=== PATIENT | female | born 1950 | race Caucasian/White ===

== ENCOUNTER → 2020-03-05 | Day surgery (SDC) | payer MEDICARE ==
[2020-03-01 09:57] LABS: BASOPHILS % 0.3 % (0.0-1.0); EOSINOPHILS # (AUTO) 0.2 (0.0-0.4); EOSINOPHILS % 2.2 % (0.0-6.0); HEMATOCRIT 39.1 % (34.2-44.1); HEMOGLOBIN 12.8 g/dL (12.0-16.0); LYMPHOCYTES # (AUTO) 2.1 (1.0-3.2); LYMPHOCYTES % 23.4 % (18.0-39.1); MEAN CORPUSCULAR HEMOGLOBIN 30.3 pg (28-32); MEAN CORPUSCULAR HGB CONC 32.7 g/dL (31-35); MEAN CORPUSCULAR VOLUME 92.7 fL (81-99); MONOCYTES # (AUTO) 0.7 (0.2-0.8); MONOCYTES % 7.6 % (4.4-11.3); NEUTROPHILS % 66.2 % (38.7-80.0); PLATELET COUNT 210 x10e3/uL (140-360); RED BLOOD COUNT 4.22 x10e6/uL (3.6-5.1); RED CELL DISTRIBUTION WIDTH 11.9 % (11.7-14.4)
[2020-03-01 10:34] LABS: ALANINE AMINOTRANSFERASE 18 IU/L (0-55); ALBUMIN/GLOBULIN RATIO 1.1 (0.8-2.0); ALKALINE PHOSPHATASE 56 IU/L (40-150); BLOOD UREA NITROGEN 18 mg/dL (7-26); BUN/CREATININE RATIO 22 (6-25); CALCIUM 9.3 mg/dL (8.4-10.2); CARBON DIOXIDE 25 mmol/L (22-29); CHLORIDE 99 mmol/L (98-107); CREATININE, SERUM 0.82 mg/dL (0.57-1.11); EST GLOMERULAR FILTRATION RATE > 60 ML/MIN (60-); GLUCOSE 90 mg/dL (74-118); SODIUM 134 mmol/L (136-145)
[~2020-03-05] VITALS: Ht 160 cm; Wt 70.3 kg
[~2020-03-05] MED LIST: ALENDRONATE SOD70 MG PO; ALPRAZOLAM 0.5 MG TAB ONE; CALCIUM ACETAT667 M1 PO; CYCLOBENZAPRINE10 MG PO; DIPHENHYDRAMINE HCL 25 MG CAP ONE; FENTANYL CITRATE/PF 100MCG/2 ML INJ ONE; HEPARIN SOD/SOD CHLORIDE 2,000 ML ONE; HYDROCHLOROTH12.5 MG PO; HYDROCODON-ACE1 EA12 PO; HYDROCODONE/APAP 5MG-325MG TAB ONE; HYDROMORPHONE PO; IOPAMIDOL 370 MG/ML 200 ML INFUS..BTL INJ ONE; LIDOCAINE HCL 2% LOCAL 20 ML VIAL ONE; LIPITOR20 MG PO; LISINOPRIL PO; LOSARTAN POTASS50 MG PO; LOVENOX40 MG/0.4 SC; MIDAZOLAM HCL 2 MG/2 ML VIAL ONE; NORCO 7.5-3251 EACH PO; OXAPROZIN600 MG PO; PROMETHAZINE12.5 M1 PO; SODIUM CHLORIDE 0.9% 1000ML 1,000 ML ONE; VERAPAMIL HCL 2.5 MG/ML 2 ML VIAL ONE; VITAMIN D
[2020-03-05 13:44] VITALS: BP 104/76
--- NOTE | 2020-03-05 13:44 | NUR ---
1344p Report from Jane Rn ,Identiferx2. Alert oriented and appropriate, PERRLA, respirations even and unlabored to room air. Pulses x4 extremities equal and palpable . Cap fill brisk < 3 sec. + neurovascular function of right wrist/hand w/ TR Band present. No s/s of swelling or discolor at site. VS trend reviewed and medications given.Tr band down at 1430pm. Skin warm and dry integrity appears intact in general. IV left hand 20 at 100cchr 0.9NS, presents healthy w/o s/s of infiltration or complaint. Abdomen soft and supple. pt offered toileting, denies need to urinate or defecate. Resting with HOB elevated approx 30o. Personal affects with patient. Pt verbalizes understanding of POC. Educated marketing and communications officer light use. bed low and locked, side rails up x2 and call light at side. pt using provided mask for COVID-19 mitigation. twyla/rn
[2020-03-05 14:00] VITALS: BP 103/77
[2020-03-05 14:15] VITALS: BP 108/77
--- NOTE | 2020-03-05 14:17 | Operative Report ---
DATE OF PROCEDURE: 03/05/2020 SURGEON: Carlos Santacruz MD INDICATIONS: Coronary artery disease, angina, and abnormal stress test. PROCEDURES PERFORMED: 1. Ultrasound-guided access in the right radial artery with sheath placement. 2. Left heart catheterization, selective coronary angiography. 3. Conscious sedation, 35 minutes. 4. Deployment of right wrist TR band. COMPLICATIONS: None. RECOMMENDATIONS: Medical therapy. DESCRIPTION OF PROCEDURE: Access was obtained in the right radial artery using ultrasound guidance. A 5-Hungarian sheath was placed. Coronary angiography demonstrated diffuse 30% to 50% calcified coronary artery disease in all coronary vessels. Mid left anterior descending artery, 50% to 70%, that involves the ostium of the 1st diagonal artery. No intervention deemed necessary. Right wrist TR band applied. The patient discharged home the same day. Carlos Santacruz MD [facility] /[id number]
[2020-03-05 14:30] VITALS: BP 107/70
--- NOTE | 2020-03-05 14:30 | NUR ---
1430p RADIAL Compression removal: Initial Cuff volume 12 cc 1430p -2cc Removed No hematoma/bleeding noted with normal neurovascular function. 1430 -5cc Removed No hematoma/ bleeding noted with normal neurovascular function. 1445 -5cc Removed No hematoma/bleeding noted with normal neurovascular function. Air removal completed. Stasis achieved sterile 2x2,Tegaderm, Coban dressing No hematoma, bleeding noted with normal neurovascular function. Pt instructed on POC. Ds/Rn
[2020-03-05 15:00] VITALS: BP 107/77
--- NOTE | 2020-03-05 15:00 | NUR ---
1500Pt meets discharge criteria. VS wnl, alert and oriented. Pt and Family Understands discharge instruction. Overall general assess w/o gross outliers. Skin warm, dry, and intact. Right radial dressing soft w/o s/s of hematoma. + neurovascular function of right hand present. IV removed and appears distal tip is intact, Carlyn staff interpreter member verifying. Pt maintains mask on for COVID 19 precautions being taken by wheel chair to awaiting car. Transfers w/o gross distress with discharge paperwork in hand.-ds/rn
== END | disposition home or self-care (01) ==
LOC: CATH LAB 11:41
PROVIDERS: ATTEND Internal Medicine Interventional Cardiology
DX: I25.119 Atherosclerotic heart disease of native coronary artery with unspecified angina pectoris (principal); R94.39 Abnormal result of other cardiovascular function study; I10 Essential (primary) hypertension; F17.210 Nicotine dependence, cigarettes, uncomplicated; Z01.812 Encounter for preprocedural laboratory examination; Z20.828 Contact with and (suspected) exposure to other viral communicable diseases; Z82.49 Family history of ischemic heart disease and other diseases of the circulatory system
CPT/HCPCS: 36415; 76937; 80053; 85025; 93454; C1769; C1887; J2001; J2250; J3010; J7030; Q9967; U0002; 99152